=== PATIENT | female | born 1935 | race Caucasian/White ===

== ENCOUNTER 2017-11-26 09:19 | Emergency (ER) | payer OTHER ==
[2017-11-26 09:26] VITALS: TEMP 98.4; BMI 23.6
--- NOTE | 2017-11-26 09:26 | PDOC ---
History of Present Illness - General Chief Complaint: Chest Pain Stated Complaint: CHEST PRESSURE, RT LEG PAIN Time Seen by Provider: 11/26/17 09:21 History Source: Patient Exam Limitations: No Limitations - History of Present Illness Initial Comments: 11/26/17 09:24 82 y/o female recently treated for cellulitis of the right leg with Amoxicillin and then Doxycycline, presents to ER with chest pain and SOB today. Patient denies any prior hx of heart or lung disease, stating she just had a full work up by her PMD. She went to the [facility]. No back pain, fever or chills. No cough. No N/V/d/C. Complains of right leg pain, but no swelling. US right leg on 11/02 in the ER was negative as per patient. Pt took a Tylenol for the leg pain. Presenting Symptoms: Chest Pain, Short of Breath Timing/Duration: reports: intermittent Severity/Quality: reports: mild Chest Pain Radiation: reports: no radiation Activities at Onset: reports: none Past History - Past Medical History Allergies/Adverse Reactions: Allergies Allergy/AdvReac Type Severity Reaction Status Date / Time Sulfa (Sulfonamide Allergy Severe rash Verified 11/26/17 09:52 Antibiotics) escitalopram oxalate Allergy irritable Verified 11/26/17 09:52 [From Lexapro] bowel, acid reflux cephalexin monohydrate AdvReac Mild esophagel Verified 11/26/17 09:52 [From Keflex] distress celecoxib [From Celebrex] AdvReac irritable Verified 11/26/17 09:52 bowel, acid reflux oxycodone HCl [From Percocet] AdvReac Nausea Verified 11/26/17 09:52 Home Medications: Ambulatory Orders Acetaminophen [Tylenol Extra Strength] 1,000 mg PO ONCE tablet 05/20/13 Cholecalciferol (Vitamin D3) [Vitamin D] 2,000 unit PO ASDIR tablet 08/09/15 Multivitamin,Ther and Minerals [Vitamin And Minerals] 1 each PO DAILY tablet Anemia: No Asthma: No Cancer: No Cardiac Disorders: No CVA: No COPD: No CHF: No Dementia: No Diabetes: No GI Disorders: Yes (GERD,IBS) Disorders: No HTN: No Hypercholesterolemia: No Liver Disease: No Seizures: No Thyroid Disease: Yes - Surgical History Abdominal Surgery: No Appendectomy: No Cardiac Surgery: No Cholecystectomy: No Lung Surgery: No Neurologic Surgery: No Orthopedic Surgery: Yes (Right Carpal Tunnel Release) - Suicide/Smoking/Psychosocial Hx Smoking History: Former smoker Have you smoked in the past 12 months: No If you are a former smoker, when did you quit?: 20 yrs ago Hx Alcohol Use: No Drug/Substance Use Hx: No Substance Use Type: None Hx Substance Use Treatment: No Cardiac Specific PMH - Complaint Specific PMHX Pacemaker: No Review of Systems - Review of Systems Able to Perform ROS?: Yes Is the patient limited Qatari proficient: No Constitutional: No: Chills, Fever Respiratory: Yes: Shortness of Breath. No: Cough Cardiac (ROS): Yes: Chest Pain. No: Edema ABD/GI: No: Nausea, Vomiting All Other Systems: Reviewed and Negative *Physical Exam - Vital Signs Last Vital Signs Temp Pulse Resp BP Pulse Ox 98.4 F 83 16 133/85 99 11/26/17 09:19 11/26/17 09:50 11/26/17 09:50 11/26/17 09:50 11/26/17 09:50 - Physical Exam General Appearance: Yes: Nourished, Appropriately Dressed. No: Apparent Distress HEENT: positive: GABBY, Normal ENT Inspection, Normal Voice, Pharynx Normal Neck: positive: Trachea midline, Normal Thyroid, Supple. negative: Tender, Rigid, Carotid bruit Respiratory/Chest: positive: Lungs Clear, Normal Breath Sounds. negative: Chest Tender, Respiratory Distress Cardiovascular: positive: Regular Rhythm, S1, S2. negative: Regular Rate ( tachycardic, but regular), Edema, JVD, Murmur Vascular Pulses: Femoral (R): 4+, Femoral (L): 4+, Carotid (R): 4+, Carotid (L) : 4+, Dorsalis-Pedis (R): 4+, Doralis-Pedis (L): 4+ Gastrointestinal/Abdominal: positive: Normal Bowel Sounds, Flat, Soft. negative : Tender, Organomegaly, Pulsatile Mass Lymphatic: negative: Adenopathy, Tenderness, Other Musculoskeletal: positive: Normal Inspection. negative: CVA Tenderness Extremity: positive: Normal Capillary Refill, Normal Inspection, Normal Range of Motion. negative: Tender, Calf Tenderness (small healed lesion to right outer leg, no erythema, full ROM, pulses 2+/4 b/l, no calf tenderness noted or swelling noted) Integumentary: positive: Normal Color, Dry, Warm. 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, Fully Oriented, Alert, Normal Mood/ Affect, Normal Response, Motor Strength 5/5 Heart Score/ECG Review - ECG Intrepretation Rhythm: Regular Rhythm Comment:: 11/26/17 09:31 HR 86 no STEMI - [place]: Normal - P and [place] Atrial Enlargement: Left - ST and T Early Repolarization: No Non Specific ST-T Wave changes: No - ECG Impressions Normal ECG: Yes ED Treatment Course - LABORATORY CBC & Chemistry Diagram: 11/26/17 09:40 11/26/17 09:40 - ADDITIONAL ORDERS Additional order review: Laboratory Results 11/26/17 11/26/17 09:40 09:40 Sodium 132 L Potassium 4.4 Chloride 98 Carbon Dioxide 27 Anion Gap 7 L BUN 16 D Creatinine < 0.8 Creat Clearance w eGFR > 60 Random Glucose 106 D Calcium 9.1 Total Bilirubin 0.7 D AST 30 D ALT 27 Alkaline Phosphatase 52 Troponin I < 0.03 Total Protein 6.1 L Albumin 3.7 11/26/17 09:40 RBC 4.53 MCV 92.1 MCHC 33.9 RDW 14.0 MPV 6.6 L 11/26/17 09:28 Due to recent treatment and leg pain, will r/o PE. 11/26/17 11:52 CT chest: No PE, left pulmonary nodule cannot r/l neoplasm, most likely fibrous scarring 11/26/17 12:28 Pt is feeling better, mostly complaining of right leg pain. US right leg: negative DVT Labs all normal. Will discharge home with follow up with her PMD If worsen return to ER Pt is in agreement with plan - RADIOLOGY Radiology Studies Ordered: Category Date Time Status CHEST CTA [CT] Stat CT Scan 11/26/17 09:21 Completed DUPLEX VASCUL US-1 LEG [US] Stat Ultrasound 11/26/17 10:41 Completed *DC/Admit/Observation/Transfer Diagnosis at time of Disposition: Leg pain, right, Chest pain, atypical - Discharge Dispostion Disposition: HOME Condition at time of disposition: Stable Decision to Admit order: No - Referrals Referrals: Saroj Cummins MD [Primary Care Provider] - - Patient Instructions Printed Discharge Instructions: DI for Atypical Chest Pain, DI for Leg Pain Additional Instructions: Ice, Motrin, rest Elevate If worsen return to ER - Post Discharge Activity
[2017-11-26 09:53] LABS: HEMATOCRIT 41.8 % (32.4-45.2); HEMOGLOBIN 14.2 GM/dl (10.7-15.3); MCH 31.3 pg (25.7-33.7); MCHC 33.9 g/dl (32.0-36.0); MEAN CELL VOLUME 92.1 fl (80-96); MEAN PLT VOLUME 6.6 fl (7.5-11.1); PLATELET COUNT 348 K/MM3 (134-434); RBC 4.53 M/mm3 (3.60-5.2); WHITE BLOOD COUNT 7.6 K/mm3 (4.0-10.8)
[2017-11-26 10:08] LABS: ALBUMIN 3.7 g/dl (3.5-5.0); ALK PHOS 52 U/L (32-92); ANION GAP 7 (8-16); BILIRUBIN,TOTAL 0.7 mg/dl (0.2-1.0); BLOOD UREA NITROGEN 16 mg/dl (7-18); CALCIUM 9.1 mg/dl (8.4-10.2); CHLORIDE 98 mmol/L (98-107); CO2 27 mmol/L (22-28); GLUCOSE,RANDOM 106 mg/dl (74-106); POTASSIUM 4.4 mmol/L (3.5-5.1); SGOT/AST 30 U/L (10-42); SGPT/ALT 27 U/L (10-40); SODIUM 132 mmol/L (136-145); TOT PROT 6.1 g/dl (6.4-8.3)
[2017-11-26 10:15] LABS: CREATININE < 0.8 mg/dl (0.6-1.3)
[2017-11-26 12:41] VITALS: BP 129/78; PULSE 78
--- NOTE | 2017-11-27 13:24 | EKG ---
Test Reason : Blood Pressure : / mmHG Vent. Rate : 086 BPM Atrial Rate : 086 BPM P-R Int : 164 ms QRS Dur : 084 ms QT Int : 368 ms P-R-T Axes : 075 008 033 degrees QTc Int : 440 ms NORMAL SINUS RHYTHM POSSIBLE LEFT ATRIAL ENLARGEMENT BORDERLINE ECG NO PREVIOUS ECGS AVAILABLE Confirmed by MD Jimbo, Donny ([id number]) on 11/27/2017 1:24:30 PM Referred By: KADEN GRAY Confirmed By:Donny Choi MD
== END 2017-11-26 12:40 | disposition home or self-care (01) ==
LOC: FER 09:19
DX: R07.89 Other chest pain (principal); M79.604 Pain in right leg; K21.9 Gastro-esophageal reflux disease without esophagitis; E07.9 Disorder of thyroid, unspecified; Z87.891 Personal history of nicotine dependence
CPT/HCPCS: 36415; 71275-TC; 80053; 84484; 85027; 93005; 93971-TC; 99284-25

== ENCOUNTER 2021-06-13 08:16 | Emergency (ER) | payer OTHER ==
[2021-06-13 08:23] VITALS: BMI 25.7
[2021-06-13] MEDS ORDERED: FAMOTIDINE 20 MG/50 ML IVPB 20 MG/50 ML MG IVPB ONE ×2 (08:25→08:38)
[2021-06-13] MEDS ORDERED: ACETAMINOPHEN 1000 MG/100 ML VIAL IVPB ONE (08:25)
[2021-06-13] MEDS ORDERED: ACETAMINOPHEN INJECTION 100 ML IVPB ONE (08:38)
[2021-06-13 09:10] LABS: ALBUMIN 3.8 g/dl (3.4-5.0); BILIRUBIN,TOTAL 0.8 mg/dl (0.2-1); CALCIUM 9.4 mg/dl (8.5-10); CREATININE 0.7 mg/dl (0.55-1.3); TOT PROT 6.3 g/dl (6.4-8.2)
[2021-06-13 09:47] VITALS: BP 146/77; PULSE 81; TEMP 98.5
[2021-06-13 09:54] LABS: BASO % 1.2 % (0-2.0); EOS % 1.6 % (0-4.5); HEMATOCRIT 41.8 % (32.4-45.2); HEMOGLOBIN 14.2 GM/dL (10.7-15.3); LYMPH % 22.6 % (8-40); MCH 31.8 pg (25.7-33.7); MEAN CELL VOLUME 93.3 fl (80-96); MONO % 6.9 % (3.8-10.2); NEUT % 67.7 % (42.8-82.8); PLATELET COUNT 368 10^3/uL (134-434); RBC 4.48 M/mm3 (3.60-5.2); RDW 13.9 % (11.6-15.6); WHITE BLOOD COUNT 8.2 K/mm3 (4.0-10.0)
== END 2021-06-13 09:49 | disposition home or self-care (01) ==
LOC: FER 08:16
PROC: 3E033GC Introduction of Other Therapeutic Substance into Peripheral Vein, Percutaneous Approach (ICD-10-PCS; principal; 2021-06-13)
DX: R07.89 Other chest pain (principal)
CPT/HCPCS: 36415; 70450-TC; 80053; 84484; 85025; 93005; 99285-25; J0131